=== PATIENT | male | born 1950 | race African-American/Black ===

== ENCOUNTER 2020-11-17 22:44 | Emergency (ER) | payer MEDICAID ==
[~2020-11-17] VITALS: Ht 172.7 cm; Wt 63.5 kg
[2020-11-17] MEDS ORDERED: BLOOD PRESSURE MED (23:14)
[2020-11-17] MEDS ORDERED: FLOMAX0.4 MG PO (23:14)
[2020-11-18 01:40] LABS: URINE BILIRUBIN NEGATIVE (Negative); URINE BLOOD TRACE (Negative); URINE CLARITY CLEAR; URINE COLOR YELLOW; URINE GLUCOSE-RANDOM NEGATIVE (Negative); URINE KETONES TRACE (Negative); URINE LEUKOCYTES-REFLEX NEGATIVE (Negative); URINE NITRITE-REFLEX NEGATIVE (Negative); URINE PROTEIN 2+ (Negative); URINE SPECIFIC GRAVITY 1.025 (1.005-1.030)
[2020-11-18] MEDS ORDERED: PROAIR HFA8.5 GM INH (02:06)
[2020-11-18] MEDS ORDERED: PREDNISONE50 MG PO (02:06)
[2020-11-18] MEDS ORDERED: DOXYCYCLINE 10100 MG PO (02:06)
[2020-11-18 02:36] LABS: CASTS None Seen /LPF (None Seen); MUCUS 4-6 Moderate strn/LPF (None Seen); SQUAMOUS 4-10 Moderate /LPF (0-3)
[2020-11-18 02:37] LABS: BACTERIA-REFLEX 1-9 Few /HPF (None Seen); CRYSTALS None Seen /LPF (None Seen); URINE RBC 3-10 Few /HPF (0-2); URINE WBC-REFLEX 0-5 Rare /HPF (0-5)
[2020-11-18] MEDS ORDERED: ZOFRAN ODT4 MG PO (02:48)
[2020-11-18 02:52] VITALS: BP 128/81
== END 2020-11-18 02:52 | disposition home or self-care (01) ==
LOC: M.ERS 22:44
PROVIDERS: Emergency Medicine
DX: U07.1 COVID-19 (principal); R30.9 Painful micturition, unspecified; F17.200 Nicotine dependence, unspecified, uncomplicated; Z79.899 Other long term (current) drug therapy